=== PATIENT | female | born 1990 | race Caucasian/White ===

== ENCOUNTER 2017-12-20 22:12 | Emergency (ER) | payer MEDICAID ==
[~2017-12-20] VITALS: Ht 147.3 cm; Wt 70.3 kg
[2017-12-20 22:12] VITALS: Ht 147.3 cm; Wt 70.3 kg
[2017-12-21] MEDS ORDERED: LIPITOR10 MG PO (00:28)
[2017-12-21] MEDS ORDERED: CYMBALTA60 MG PO (00:29)
[2017-12-21] MEDS ORDERED: HUMALOG 30100 UNITS/ SC (00:29)
[2017-12-21] MEDS ORDERED: HYDROCODON-ACE1 EAC7 (00:30)
[2017-12-21] MEDS ORDERED: METFORMIN HCL500 M1 PO (00:30)
[2017-12-21] MEDS ORDERED: LEVEMIR100 U/M1 SC (00:30)
== END 2017-12-21 01:50 ==
LOC: D.ER 22:29
DX: A41.9 Sepsis, unspecified organism (principal); R65.21 Severe sepsis with septic shock; I46.9 Cardiac arrest, cause unspecified; E11.10 Type 2 diabetes mellitus with ketoacidosis without coma; D64.9 Anemia, unspecified